=== PATIENT | male | born 1940 | race Caucasian/White ===

== ENCOUNTER 2018-10-09 14:57 | Emergency (ER) | payer SELFPAY, OTHER, MEDICAID, MEDICARE ==
[2018-10-09] MEDS: MINERAL OIL 133 ML ENEMA PR (18:11)
[2018-10-09] MEDS: LOSARTAN 50 MG TAB PO (20:34)
== END 2018-10-09 21:11 | disposition home or self-care (01) ==
LOC: E/R 14:57
DX: K59.00 Constipation, unspecified (principal); E11.9 Type 2 diabetes mellitus without complications; J44.9 Chronic obstructive pulmonary disease, unspecified; F17.210 Nicotine dependence, cigarettes, uncomplicated; R03.0 Elevated blood-pressure reading, without diagnosis of hypertension; Z79.82 Long term (current) use of aspirin; Z79.84 Long term (current) use of oral hypoglycemic drugs
CPT/HCPCS: 99283